=== PATIENT | female | born 1990 | race American Indian/Alaskan Native ===

== ENCOUNTER 2018-01-03 11:42 | Emergency (ER) | payer MEDICAID ==
[2018-01-03 11:51] VITALS: BP 120/73; PULSE 73; RESP 16; TEMP 98.7; O2SAT 100
[2018-01-03 12:46] LABS: HCG,QUALITATIVE URINE POSITIVE (NEGATIVE)
--- NOTE | 2018-01-03 12:47 | C.PDOC ---
History Of Present Illness Patient walked out before being seen Time Seen by Provider: 01/03/18 12:23 Chief Complaint (Nursing): Abdominal Pain Past Medical History Vital Signs: Last Vital Signs Temp 98.7 F 01/03/18 11:49 Pulse 73 01/03/18 11:49 Resp 16 01/03/18 11:49 BP 120/73 01/03/18 11:49 Pulse Ox 100 01/03/18 11:49 Family History: States: No Known Family Hx - Social History Hx Alcohol Use: No Hx Substance Use: No - Immunization History Hx Tetanus Toxoid Vaccination: No Hx Influenza Vaccination: No Hx Pneumococcal Vaccination: No ED Course And Treatment O2 Sat by Pulse Oximetry: 100 Disposition - Disposition Disposition: ELOPEMENT - ER ONLY Disposition Time: 12:46 Condition: UNKNOWN Instructions: Acute Abdomen (Belly Pain), Adult (DC) - Clinical Impression Clinical Impression: Abdominal pain
[2018-01-03 12:52] LABS: SQUAMOUS EPITHIAL 3 /hpf (0-5); URINE BILIRUBIN NEGATIVE (NEGATIVE); URINE BLOOD NEGATIVE (NEGATIVE); URINE CLARITY Clear (Clear); URINE COLOR Yellow (YELLOW); URINE GLUCOSE (UA) NORMAL (Normal); URINE LEUKOCYTE ESTERASE NEG Leu/uL (Negative); URINE PROTEIN NEGATIVE (NEGATIVE); URINE UROBILINOGEN NORMAL mg/dL (0.2-1.0)
== END 2018-01-03 12:46 | disposition left against medical advice (07) ==
LOC: C.ER 11:42
DX: R10.9 Unspecified abdominal pain (principal)

== ENCOUNTER 2018-06-16 18:56 | Emergency (ER) | payer MEDICAID ==
[2018-06-16 19:22] VITALS: BMI 30.4
--- NOTE | 2018-06-16 19:32 | OBHP ---
Datetime: 06/16/2018 19:27 IP Adm Impression: , intrauterine Admit Comment, IP Provider: at 31weks came with c/o cramping or discomfort on walking, no pain no ctxs, vb , lof+fm. no vb. pt missed her appointment for sonogram and wanted sono obhx primi pmh de med pnv all nkda psh de soch de ve closed a/p at 31weks maternal discomfort ua cont latrell and efm cont close observation Pelvic Type - PN: Adequate Extremities - PN: Normal Abdomen - PN: Normal Back - PN: Normal Breast - PN: Normal Lungs - PN: Normal Heart - PN: Normal Thyroid - PN: Normal Neurologic - PN: Normal HEENT - PN: Normal General - PN: Normal FHR - Baseline A Provider: 130 Contraction Comments Provider: none EGA AdmitDate IP: 31.1 Vital Signs Provider: Reviewed; Within Normal Limits IP Chief Complaint: Maternal discomfort NICHD Variability Prov Fetus A: Moderate 6-25bpm NICHD Accel Fetus A IP Provider: 10X10 FHR Category Provider Fetus A: Category I Dilatation, Provider: 0 Effacement, Provider: 0 Station, Provider: -3 Genitourinary Exam: Normal DTRs - PN: Normal
[2018-06-16 19:51] LABS: SQUAMOUS EPITHIAL < 1 /hpf (0-5); URINE BILIRUBIN NEGATIVE (NEGATIVE); URINE BLOOD NEGATIVE (NEGATIVE); URINE CLARITY Clear (Clear); URINE COLOR Straw (YELLOW); URINE GLUCOSE (UA) NORMAL (Normal); URINE LEUKOCYTE ESTERASE NEG Leu/uL (Negative); URINE PROTEIN NEGATIVE (NEGATIVE); URINE UROBILINOGEN NORMAL mg/dL (0.2-1.0)
[2018-06-17 16:53] VITALS: BP 96/68; PULSE 85; RESP 18; TEMP 97.5; O2SAT 99
== END 2018-06-16 20:06 | disposition home or self-care (01) ==
LOC: C.EROB 18:56
DX: O26.893 Other specified pregnancy related conditions, third trimester (principal); Z3A.31 31 weeks gestation of pregnancy

== ENCOUNTER 2018-08-20 02:10 | Emergency (ER) | payer MEDICAID ==
--- NOTE | 2018-08-20 02:56 | OBHP ---
Datetime: 08/20/2018 02:48 IP Adm Impression: Term, intrauterine IP Admit Plan: Discharge home Admit Comment, IP Provider: Pt presents today with complaints of labor pain. sve: closed juju and high. pnc: warick pmhx: none psh: none social: negative. Fhx: none 28 yo @ 40.2 weeks presents today for complaints of labor pain. 1) vss: afebrile 2) sve" closed/long/hi 3) early labor 4) d/c home. Pelvic Type - PN: Adequate Extremities - PN: Normal Abdomen - PN: Normal Back - PN: Normal Breast - PN: Normal Lungs - PN: Normal Heart - PN: Normal Thyroid - PN: Normal Neurologic - PN: Normal HEENT - PN: Normal General - PN: Normal FHR - Baseline A Provider: 140 Membranes, Provider: Bulging Contraction Comments Provider: irregular Gestation - Est Wks by US: 40.0 EGA AdmitDate IP: 40.2 Vital Signs Provider: Reviewed IP Chief Complaint: Uterine contractions NICHD Variability Prov Fetus A: Moderate 6-25bpm NICHD Accel Fetus A IP Provider: 15X15 Dilatation, Provider: 0 Genitourinary Exam: Normal DTRs - PN: Normal
[2018-08-20 07:24] VITALS: BP 135/88; PULSE 87; RESP 18; TEMP 98.6
== END 2018-08-20 03:15 | disposition home or self-care (01) ==
LOC: C.EROB 02:10
DX: O47.1 False labor at or after 37 completed weeks of gestation (principal); Z3A.40 40 weeks gestation of pregnancy